=== PATIENT | male | born 1975 | race Two or more races ===

== ENCOUNTER 2022-08-12 06:00 | Day surgery (SDC) | payer OTHER ==
[~2022-08-12] VITALS: Ht 180.3 cm; Wt 101.2 kg
[~2022-08-12 06:00] MED LIST: CRESTOR40 MG PO; GLIPI PO; HORIZANT300 MG PO; HORIZANT600 MG PO; HYDRALAZINE HC100 MG PO; JARDIANCE25 MG PO; LANTUS; METFO PO; MICARDIS80 MG PO
== END 2022-08-12 15:20 | disposition home or self-care (01) ==
LOC: CIR.AMB 06:00
PROVIDERS: ATTEND Orthopaedic Surgery Hand Surgery
DX: M65.321 Trigger finger, right index finger (principal); Z20.822 Contact with and (suspected) exposure to COVID-19; I10 Essential (primary) hypertension; M65.9 Synovitis and tenosynovitis, unspecified